=== PATIENT | male | born 1970 | race Caucasian/White ===

== ENCOUNTER → 2021-02-26 | Outpatient (CLI) | payer OTHER ==
--- NOTE | 2021-02-26 10:53 | RAD ---
EXAM: LUMBAR SPINE 3 VIEWS. HISTORY: Low back pain COMPARISON: None. FINDINGS: There is a moderate superior endplate compression fracture at T12 with mild focal kyphosis. Intervertebral disc heights are maintained within the lumbar spine. Endplate remodeling indicates mi ld degenerative disc disease across the thoracolumbar junction. Facet osteoarthritis appears mild to moderate from L3 through S1. IMPRESSION: 1. A moderate T12 compression fracture is most likely chronic. It results in mild focal kyphosis. Electronically signed by: Victor M Ag MD (02/26/2021 10:50 AM) [id number]
== END ==
LOC: DXRAD 09:18
PROVIDERS: ATTEND Physician Assistant
DX: S22.089A Unspecified fracture of T11-T12 vertebra, initial encounter for closed fracture (principal); M51.35 Other intervertebral disc degeneration, thoracolumbar region; X58.XXXA Exposure to other specified factors, initial encounter; Y93.89 Activity, other specified; Y92.89 Other specified places as the place of occurrence of the external cause; Y99.8 Other external cause status
CPT/HCPCS: 72100

== ENCOUNTER 2021-11-29 18:59 | Emergency (ER) | payer SELFPAY ==
[~2021-11-29] VITALS: Ht 172.7 cm; Wt 102.3 kg
[2021-11-29 19:10] VITALS: BP 115/76
[2021-11-29] MEDS ORDERED: OXYMETAZOLINE 0.05% NASAL SPRAY 30ML BOTTLE. NS ONE (19:30)
[2021-11-29] MEDS ORDERED: SODI30SP NS (19:43)
--- NOTE | 2021-11-29 19:43 | PHYS DOC ---
Past History Past Surgical History: Other Additional Past Surgical Histo: ROTATOR CUFF Alcohol Use: Occasionally General Adult EDM: Chief Complaint: NOSEBLEED HPI: HPI: Patient is a [age] year old [sex] who presents with [] Review of Systems: Review of Systems: Constitutional: Denies fever or chills Eyes: Denies change in visual acuity HENT: Denies nasal congestion or sore throat Respiratory: Denies cough or shortness of breath Cardiovascular: Denies chest pain or edema GI: Denies abdominal pain, nausea, vomiting, bloody stools or diarrhea : Denies dysuria Musculoskeletal: Denies back pain or joint pain Integument: Denies rash Neurologic: Denies headache, focal weakness or sensory changes Endocrine: Denies polyuria or polydipsia Lymphatic: Denies swollen glands Psychiatric: Denies depression or anxiety Current Medications: Current Meds: Current Medications Medications (Trade) Dose Ordered Sig/Sarbjit Start Time Stop Time Status Last Admin Dose Admin Oxymetazoline HCl (Afrin) 2 spray 1X ONCE 11/29/21 19:30 11/29/21 19:31 UNV Allergies: Allergies: Allergies Coded Allergies Type Severity Reaction Last Updated Verified No Known Drug Allergies 11/29/21 No Physical Exam: PE: Constitutional: Well developed, well nourished, no acute distress, non-toxic appearance. [] HENT: Normocephalic, atraumatic, bilateral external ears normal, oropharynx moist, no oral exudates, nose normal. [] Eyes: PERRLA, EOMI, conjunctiva normal, no discharge. [] Neck: Normal range of motion, no tenderness, supple, no stridor. [] Cardiovascular:Heart rate regular rhythm, no murmur [] Lungs & Thorax: Bilateral breath sounds clear to auscultation [] Abdomen: Bowel sounds normal, soft, no tenderness, no masses, no pulsatile masses. [] Skin: Warm, dry, no erythema, no rash. [] Back: No tenderness, no CVA tenderness. [] Extremities: No tenderness, no cyanosis, no clubbing, ROM intact, no edema. [] Neurologic: Alert and oriented X 3, normal motor function, normal sensory function, no focal deficits noted. [] Psychologic: Affect normal, judgement normal, mood normal. [] Current Patient Data: Vital Signs: Vital Signs Date Time Temp Pulse Resp B/P (MAP) Pulse Ox O2 Delivery O2 Flow Rate FiO2 11/29/21 19:10 97.5 77 18 115/76 (89) 77 Room Air EKG: EKG: [] Radiology/Procedures: Radiology/Procedures: [] Heart Score: Risk Factors: Risk Factors: DM, Current or recent (<one month) smoker, HTN, HLP, family history of CAD, obesity. Risk Scores: Score 0 - 3: 2.5% MACE over next 6 weeks - Discharge Home Score 4 - 6: 20.3% MACE over next 6 weeks - Admit for Clinical Observation Score 7 - 10: 72.7% MACE over next 6 weeks - Early Invasive Strategies Course & Med Decision Making: Course & Med Decision Making Pertinent Labs and Imaging studies reviewed. (See chart for details) [] Dragon Disclaimer: Dragon Disclaimer: This electronic medical record was generated, in whole or in part, using a voice recognition dictation system. Departure Departure: Impression: Primary Impression: Epistaxis Disposition: HOME / SELF CARE / HOMELESS Condition: STABLE Referrals: [facility] (PCP) Patient Instructions: Nosebleed, [id number] Additional Instructions: Use bedside humidifier especially at night. Refrain from using fans. Refrain from picking nose. Increase fluid hydration. Use Nordic nasal spray/nasal saline 3 times daily for the next few days. For active bleeding follow these directions prior to return to the emergency department: Blow any clots from both nostrils. Use 2 sprays of Afrin to each nostril. Place nasal clamp for next 15 minutes. After 15 minutes repeat move nasal clamp. If bleeding continues repeat previous steps x2. If after 45 minutes/3 nasal clamping's/6 sprays to each nostril of Afrin, if bleeding continues then return to the emergency department. Scripts Sodium Chloride (SALINE NASAL SPRAY) 30 Ml [place] 2 SPR NS TID for Nasal dryness, #30 ML Prov: BIENVENIDO GIBSON DO 11/29/21 BIENVENIDO GIBSON DO Nov 29, 2021 19:43
== END 2021-11-29 19:50 | disposition home or self-care (01) ==
LOC: ER 18:59
DX: R04.0 Epistaxis (principal)
CPT/HCPCS: 99282-25